=== PATIENT | male | born 1985 | race Caucasian/White ===

== ENCOUNTER 2017-09-28 16:53 | Emergency (ER) | payer OTHER ==
[~2017-09-28] VITALS: Ht 190.5 cm; Wt 117.9 kg
[2017-09-28] MEDS ORDERED: TETANUS/DIPHTHERIA TOX ADULT 0.5 ML SYR IM ONE (17:15)
[2017-09-28] MEDS ORDERED: BACITRACIN ZINC 0.9GM TP STA (17:19)
== END 2017-09-28 18:31 | disposition home or self-care (01) ==
LOC: ER 16:53
DX: S71.111A Laceration without foreign body, right thigh, initial encounter (principal); S31.811A Laceration without foreign body of right buttock, initial encounter; S61.210A Laceration without foreign body of right index finger without damage to nail, initial encounter; W45.8XXA Other foreign body or object entering through skin, initial encounter; Y92.008 Other place in unspecified non-institutional (private) residence as the place of occurrence of the external cause
CPT/HCPCS: 90471; 90714; 99283